=== PATIENT | male | born 1965 | race Caucasian/White ===

== ENCOUNTER 2021-12-19 15:43 | Emergency (ER) | payer MEDICARE ==
[2021-12-19] MEDS ORDERED: CYCLOBENZAPRINE10 MG PO (20:48)
== END 2021-12-19 21:15 | disposition home or self-care (01) ==
LOC: ER1 15:43
DX: S33.5XXA Sprain of ligaments of lumbar spine, initial encounter (principal); E11.9 Type 2 diabetes mellitus without complications; I10 Essential (primary) hypertension; Z90.89 Acquired absence of other organs; Z90.49 Acquired absence of other specified parts of digestive tract; Z88.1 Allergy status to other antibiotic agents; Z79.899 Other long term (current) drug therapy; X58.XXXA Exposure to other specified factors, initial encounter
CPT/HCPCS: 96372; 99283; J1885; J2360